=== PATIENT | male | born 1955 | race Caucasian/White ===

== ENCOUNTER 2021-03-30 18:45 | Emergency (ER) | payer OTHER ==
[~2021-03-30] VITALS: Ht 177.8 cm; Wt 90.7 kg
[~2021-03-30 18:45] MED LIST: LITHIUM CARBON450 MG PO; METFORMIN; SEROQUEL300 MG PO; VALIUM2 MG PO
[2021-03-30 18:49] VITALS: BP 143/93
[2021-03-30] MEDS ORDERED: GABAPENTIN 100100 MG PO (18:53)
[2021-03-30] MEDS ORDERED: AMOXICILLIN500 M1 PO (18:55)
== END 2021-03-30 19:11 | disposition home or self-care (01) ==
LOC: ER 18:45
DX: K04.7 Periapical abscess without sinus (principal); M19.90 Unspecified osteoarthritis, unspecified site; E78.00 Pure hypercholesterolemia, unspecified; E11.9 Type 2 diabetes mellitus without complications; Z79.899 Other long term (current) drug therapy

== ENCOUNTER 2021-07-11 09:02 | Emergency (ER) | payer OTHER ==
[~2021-07-11] VITALS: Ht 177.8 cm; Wt 90.7 kg
[~2021-07-11 09:02] MED LIST changes: +AMOXICILLIN500 M1 PO; +GABAPENTIN 100100 MG PO
[2021-07-11 09:11] VITALS: BP 133/76
[2021-07-11 09:53] LABS: ABSOLUTE NEUTROPHILS 3.8 thou/uL (1.4-8.2); BASOPHILS 0.5 % (0.0-2.0); EOSINOPHILS 2.5 % (0.0-3.0); HEMATOCRIT 40.4 % (42.0-52.0); HEMOGLOBIN 13.7 gm/dL (14.0-18.0); MCH 30.2 pg (26.0-34.0); MCHC 33.9 g/dL (28.0-37.0); MONOCYTES 10.8 % (1.0-8.0); PLATELET COUNT 180 thou/uL (150-400); POLYS 60.2 % (36.0-66.0); RBC 4.54 mil/uL (4.50-6.00); RDW 12.9 % (10.5-14.5); WBC 6.2 thou/uL (4.0-11.0)
[2021-07-11 10:07] LABS: ANION GAP 9 mmol/L (7-16); BUN 17 mg/dL (7-18); CHLORIDE 105 mmol/L (98-107); CO2 24 mmol/L (21-32); CREATININE 1.2 mg/dL (0.7-1.3); GLUCOSE 111 mg/dL (74-106); POTASSIUM 4.4 mmol/L (3.5-5.1); SODIUM 138 mmol/L (136-145)
--- NOTE | 2021-07-11 17:15 | EKG ---
[place] [address] [facility] [place] [address] ELECTROCARDIOGRAM REPORT Name: STEELELAMAR Room #: SCOTT Modi#: [id number] Admission: 07/11/21 Attend Phys: Discharge: 07/11/21 Date of : 53 Report #: [id number] 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[employer]: BILLIE : 1955 Requested By: Rogelio Herrera Order Number: [id number] MD: Yung Kamara Measurements Intervals [place] Rate: 57 P: 22 AR: 177 QRS: -34 QRSD: 91 T: 20 QT: 392 QTc: 382 Interpretive Statements Sinus rhythm Left axis deviation Low voltage, precordial leads No previous ECG available for comparison Electronically Signed On 07-11-2021 17:15:03 [employer]GRAM DIRECTOR [employer] WORK by Yung Kamara [email or web address] <ELECTRONICALLY SIGNED> By: Yung Kamara MD, [facility] 07/11/21 1715 0912 1 Yung Kamara MD, FACC /EPI
== END 2021-07-11 11:10 | disposition home or self-care (01) ==
LOC: ER 09:02
PROVIDERS: Student in an Organized Health Care Education/Training Program
DX: J06.9 Acute upper respiratory infection, unspecified (principal); Z20.822 Contact with and (suspected) exposure to COVID-19; F31.9 Bipolar disorder, unspecified; M19.90 Unspecified osteoarthritis, unspecified site; E78.00 Pure hypercholesterolemia, unspecified; Z98.890 Other specified postprocedural states; Z79.891 Long term (current) use of opiate analgesic; Z79.899 Other long term (current) drug therapy